=== PATIENT | female | born 1955 | race Caucasian/White ===

== ENCOUNTER 2017-09-09 10:01 | Outpatient (CLI) | payer MEDICARE ==
--- NOTE | 2017-09-10 16:03 | Mammography Report ---
DATE OF SERVICE: 09/09/2017 DIGITAL SCREENING MAMMOGRAM: 09/09/2017 CLINICAL INDICATION: A 61-year-old for screening. COMPARISON: 11/2015, 05/2013. TECHNIQUE: Routine CC and MLO projections were obtained of the breasts. FINDINGS: The breasts again demonstrate scattered fibroglandular densities bilaterally. Coarse and punctate, typically benign calcifications are present. Intramammary lymph node is stable. No suspicious masses, clustered microcalcifications, or regions of architectural distortion are identified. IMPRESSION: BENIGN FINDINGS. RECOMMENDATION: Routine annual screening unless otherwise clinically indicated. BIRADS CATEGORY 2 - BENIGN FINDINGS. STANDARD QUALIFYING STATEMENTS: 1. This examination was reviewed with the aid of Computer-Aided Detection (CAD). 2. A negative or benign imaging report should not delay biopsy if clinically suspicious findings are present. Consider surgical consultation if warranted. More than 5% of cancers are not identified by imaging. 3. Dense breasts may obscure an underlying neoplasm. TD: 09/10/2017 16:02
== END 2017-09-09 10:02 | disposition home or self-care (01) ==
LOC: DI 10:01
PROVIDERS: ATTEND Internal Medicine
DX: Z12.31 Encounter for screening mammogram for malignant neoplasm of breast (principal)
CPT/HCPCS: 77067

== ENCOUNTER 2017-09-09 10:02 | Outpatient (CLI) | payer MEDICARE ==
--- NOTE | 2017-09-11 13:02 | DEXA Report ---
DEXA SCAN: 09/09/2017 CLINICAL INDICATION: Postmenopausal. TECHNIQUE: Dual energy x-ray absorptiometry (DXA) was performed on a [employer] system. Regions measured are the AP spine, femoral neck, and, if needed, forearm. COMPARISON: None. In accordance with the International Society for Clinical Densitometry (ISCD) guidelines, data from previous exams may be reanalyzed using current recommendations and techniques. This is done to allow a more accurate basis for comparison with the current study. FINDINGS: The data for the lumbar spine is as follows: REGION BMD (g/cm/cm) T-SCORE Z-SCORE L1 1.242 0.9 1.9 L2 1.297 0.8 1.7 L3 1.385 1.5 2.5 L4 1.425 1.9 2.8 TOTAL 1.345 1.4 2.3 NOTE: All evaluable vertebrae are used for classification. The data for the hip is as follows: REGION BMD (g/cm/cm) T-SCORE Z-SCORE Neck 0.792 -1.8 -0.7 TOTAL 0.820 -1.5 -0.8 NOTE: The femoral neck or total proximal femur, whichever is lowest, is used for classification. IMPRESSION: THE WHO CLASSIFICATION BASED ON THE INTERNATIONAL REFERENCE STANDARD IS OSTEOPENIA. THE FRACTURE RISK IS INCREASED. RECOMMENDATION: Patients with diagnosis of osteoporosis or osteopenia should have regular bone mineral density assessment. For those eligible for Medicare, routine testing is allowed once every 2 years. Testing frequency can be increased for patients who have rapidly progressing disease or for those who are receiving medical therapy to restore bone mass. COMMENT: World Health Organization (WHO) definitions for osteoporosis and osteopenia: NORMAL BMD: T-score at 1.0 or higher, fracture risk is low. OSTEOPENIA BMD: T-score between 1.0 and -2.5, fracture risk is increased. OSTEOPOROSIS BMD: T-score at 2.5 or lower, fracture risk high. National Osteoporosis Foundation recommends: 1. Obtain adequate dietary calcium (at least 1200 mg per day) and vitamin D (400 -800 international units per day). 2. Participate, as appropriate, in regular weightbearing and muscle- strengthening exercise. 3. Avoid tobacco use and reduce alcohol and caffeine intake. 4. For more detailed information see the website at www.NOF.org. TD: 09/09/2017 12:30 MTDLola
== END 2017-09-09 10:03 | disposition home or self-care (01) ==
LOC: DI 10:02
PROVIDERS: ATTEND Internal Medicine
DX: Z13.820 Encounter for screening for osteoporosis (principal); M85.88 Other specified disorders of bone density and structure, other site
CPT/HCPCS: 77080

== ENCOUNTER 2017-10-08 12:24 | Outpatient (CLI) | payer MEDICARE ==
--- NOTE | 2017-10-08 18:15 | XRAY Report ---
BILATERAL HIPS AND PELVIS: 10/08/2017 CLINICAL INDICATION: Persistent pain. FINDINGS: Frontal view of the hips and pelvis and bilateral frogleg lateral views of the hips demonstrate moderate left and severe right hip osteoarthritis, with complete collapse of the right superior joint space. Surgical clips are noted in the left pelvis. There is no evidence of acute fracture or dislocation. IMPRESSION: RIGHT WORSE THAN THE LEFT HIP OSTEOARTHRITIS. TD: 10/08/2017 18:14
--- NOTE | 2017-10-08 18:16 | XRAY Report ---
THREE VIEW LEFT KNEE: 10/08/2017 CLINICAL INDICATION: Persistent pain. FINDINGS: AP, lateral, sunrise views of the left knee demonstrate mild osteoarthritis, with small osteophytes. There is no evidence of fracture or dislocation. No effusion is present. IMPRESSION: MILD LEFT KNEE OSTEOARTHRITIS. TD: 10/08/2017 18:15
== END 2017-10-08 12:25 | disposition home or self-care (01) ==
LOC: DI.S 12:24
PROVIDERS: ATTEND Internal Medicine
DX: M17.12 Unilateral primary osteoarthritis, left knee (principal); M16.0 Bilateral primary osteoarthritis of hip
CPT/HCPCS: 73521

== ENCOUNTER 2017-11-24 13:09 | Outpatient (CLI) | payer MEDICARE ==
[~2017-11-24 13:09] MED LIST: ALBUTEROL NEB 2.5 MG/3 ML INH ONE
== END 2017-11-24 13:10 | disposition home or self-care (01) ==
LOC: RT 13:09
PROVIDERS: ATTEND Internal Medicine
DX: J45.909 Unspecified asthma, uncomplicated (principal)
CPT/HCPCS: 94010

== ENCOUNTER 2019-01-28 10:58 | Outpatient (CLI) | payer MEDICARE ==
--- NOTE | 2019-01-31 08:36 | Mammography Report ---
Reason: ENCOUNTER FOR SCREENING MAMMOGRAM FOR MALIGNANT NE Procedure Date: 01/28/2019 Accession Number: [id number] / [id number] Procedure: [facility] - Screening Mammo w/Getachew CPT Code: FULL RESULT: EXAM: Screening Mammo w/Getachew DATE: 01/28/2019 2:46 PM CLINICAL HISTORY: Screening encounter. History of early menses. Family history of breast cancer in the mother at the age of 80. Family history of breast cancer in maternal grandmother at the age of 60. History of endometrial cancer. TECHNIQUE: (B) - Bilateral CC and MLO views were obtained. COMPARISON: 09/09/2017 through 05/24/2013. PARENCHYMAL PATTERN: (A) - The breast(s) demonstrate(s) scattered fibroglandular densities. FINDINGS: There are coarse typically benign calcifications. There are no suspicious masses, calcifications, or areas of distortion. IMPRESSION: Benign findings. BI-RADS category 2. RECOMMENDATION: (ANNUAL) - Recommend routine annual screening mammography. BI-RADS CATEGORY: (2) - Benign Findings. STANDARD QUALIFYING STATEMENTS: 1. This examination was not reviewed with the aid of Computer-Aided Detection (CAD). 2. A negative or benign imaging report should not preclude biopsy if clinically suspicious findings are present. 3. Dense breasts may obscure an underlying neoplasm. 4. This examination was reviewed with the aid of 3D breast imaging (tomosynthesis).
== END 2019-01-28 10:59 | disposition home or self-care (01) ==
LOC: DI 10:58
PROVIDERS: ATTEND Internal Medicine
DX: Z12.31 Encounter for screening mammogram for malignant neoplasm of breast (principal); Z80.3 Family history of malignant neoplasm of breast
CPT/HCPCS: 77063; 77067

== ENCOUNTER 2021-03-01 09:11 | Outpatient (CLI) | payer MEDICARE ==
[2021-03-01 10:03] VITALS: BP 132/84
--- NOTE | 2021-03-01 10:03 | SLEEP CARE CONSULTATION ---
Information from patient questionnaire entered by Paige Tipton. I have reviewed and concur with the information entered by Paige Tipton. This document represents the service I personally performed and the decisions made by me, Juany Ragsdale ARNP. History of Present Illness Service Date and Time: 03/01/2021 0911 Reason for Visit: New patient Chief Complaint: reports: Unrefreshed sleep, Snoring, Excessive daytime sleepiness. denies: Observed pauses in breathing, Frequent awakenings at night Date of Onset: 10 years plus Usual bedtime: 12 - 1 am Time it takes to fall asleep: 30 minutes to hours Snores at night: Yes Observed to quit breathing while asleep: No (sleeps alone) Sleeps alone due to snoring: No Number of times waking at night: 3 Reasons for waking at night: reports: Snoring, Pain, Bathroom. denies: Choking, Gasping for air Toss, Turn, or Twitch while sleeping: No (don't know, may toss a little) Recalls having dreams: Yes Usually gets out of bed at: 10 am Feels refreshed in the morning: No Morning headache: Yes (not always; 1-2 times a week, lasts until has coffee or takes analgesic) Sleepy or fatigued during the day: Yes Ever fallen asleep while driving: Yes (drowsy driving, no accidents) Takes day naps: No Dreams during day naps: No Prior sleep studies: No Additional HPI information: I had the pleasure of seeing ROVERTO GRECO today regarding the possibility of her having a sleep disorder. Her current complaints are snoring, unrefreshed sleep and excessive daytime sleepiness. She had full knee replacement surgery and it was seen that she decreases in her oxygen levels when she went to sleep. She has been told she snores. She states she gets clogged in her sinuses and this wakes her up at night. She has a cough. Her son recently told her that he has sleep apnea. - Parasomnia Symptoms Ever been unable to move upon waking from sleep: No Walks in sleep: No Talks in sleep: Yes Ever felt weak in the knees when startled or emotional: Yes Bothered by creepy, crawly, restless sensations in legs: Yes (happen throughout the day) Problems with memory or concentration: Yes (hard time concentrating on anything) Subjective Initial [place] Sleepiness Scale score: 11 (in 2020) Past Medical History Past Medical History: reports: Hypertension, Arthritis, Anemia, Anxiety, Asthma, Depression, Other (nerve damage, sciatica, bursitis of left hip) Social History The patient's occupation is a Retired. Patient is and lives in [place]. Have you smoked in the past 12 months: No Alcohol use: Yes Alcohol amount and frequency: 8 oz, a month Caffeine use: Yes Caffeine amount and frequency: 1 cup coffee daily Family History Family history of sleep disordered breathing: Yes Family Hx Sleep Apnea: Mother: Snoring, Father: Snoring, Other: Sleep apnea - Treated (son ) Allergies and Home Medications Drug allergies reviewed: Yes (penicillin) Home medication list reviewed: Yes Allergy and home medication list: Lisinopril Duloxetine Lamotrigine Omeprazole Atorvastatin Amitriptyline Review of Systems Weight gain over past 5 years: 30 Cardiovascular: reports: high blood pressure Respiratory: reports: shortness of breath, wheeze, chronic cough Gastrointestinal: reports: heartburn, diarrhea Urinary: reports: frequency Neurological: denies: headaches Psychiatric: reports: anxiety, depression Ear/Nose/Throat: reports: nasal congestion, sinus problems, dry mouth/throat, ho arseness, tonsillectomy, wisdom teeth removed Endocrine: reports: sluggishness, increased urination Musculoskeletal: reports: joint pain, neck pain, back pain, joint swelling, muscle pain or cramping Immunologic: reports: sneezing Physical Exam Blood Pressure: 132/84 Cuff size: long Heart Rate: 88 O2 Saturation: 99 Height: 5 ft 3 in Weight: 183 lb Body Mass Index: 32.4 BMI Classification: Obese Neck circumference: 14.25 (inches) Nostrils: patent to airflow Mouth and throat: narrow oropharynx Soft palate: long Hard palate: normal Uvula: normal Uvula visualization: 50% Mallampati Class II Tongue: enlarged in size with teeth martini on lateral edges Tonsils: absent bilaterally Neck: normal w/o lymphadenopathy or thyromegaly Heart: regular rate and rhythm Lungs: clear bilaterally Impression and Plan 1. Suspected Obstructive Sleep Apnea-Hypopnea Syndrome, as suggested by a history of loud and irregular snoring, morning headache, unrefreshed sleep, cognitive impairment, and excessive daytime sleepiness. Narrow oropharynx and obesity are common predisposing factors for obstructive sleep apnea-hypopnea syndrome. I recommend proceeding to polysomnography to confirm the diagnosis and to assess severity. If the patient has significant sleep disordered breathing, a manual CPAP titration study will also be performed to find the optimal treatment pressure. I informed the patient of what the sleep studies involve and after some discussion, obtained agreement to proceed. The pathophysiology of obstructive sleep apnea-hypopnea syndrome was discussed with the patient and health risks of cardiovascular and cerebrovascular disease if not treated. Risks of drowsy driving discussed in detail and patient advised to avoid long distance driving and to basting puller at the first sign of drowsiness. Patient agreed to plan. * Schedule polysomnography +- manual CPAP titration study and return in 1-2 weeks after the study to discuss result and initiate therapy. * Avoid long distance driving or driving when feeling sleepy. * Avoid alcohol, sedative and muscle relaxant around bedtime. * Attempt to lose weight. * Review instructions provided by trained office staff on how to prepare for the sleep study. * Return for follow-up after sleep study completed. Counseling Topics: Weight loss health impact Visit Type: In Office Time Spent with Patient (minutes): 30 Provider Statement: I spent 100% of the Face to Face Visit with the patient with greater than 50% spent counseling the patient and coordination of care.
== END 2021-03-01 09:12 | disposition home or self-care (01) ==
LOC: SC 09:11
PROVIDERS: ATTEND Nurse Practitioner Family
DX: G47.10 Hypersomnia, unspecified (principal); R51.9 Headache, unspecified; R41.89 Other symptoms and signs involving cognitive functions and awareness; G47.8 Other sleep disorders; R06.83 Snoring; E66.9 Obesity, unspecified; Z68.32 Body mass index [BMI] 32.0-32.9, adult
CPT/HCPCS: 99203; G0463; 99212

== ENCOUNTER 2021-12-12 10:07 | Outpatient (CLI) | payer MEDICARE ==
[2021-12-12 10:38] LABS: BASOPHILS # (AUTO) 0.1 10^3/uL (0.0-0.1); BASOPHILS % (AUTO) 0.8 %; EOSINOPHILS # (AUTO) 0.1 10^3/uL (0.0-0.7); EOSINOPHILS % (AUTO) 1.5 %; HCT - HEMATOCRIT 41.8 % (37.0-47.0); LYMPHOCYTES # (AUTO) 1.3 10^3/uL (1.5-3.5); LYMPHOCYTES % (AUTO) 14.2 %; MEAN CORPUSCULAR HEMOGLOBIN 19.8 pg (27.0-31.0); MEAN CORPUSCULAR HGB CONC 28.7 g/dL (32.0-36.0); MEAN CORPUSCULAR VOLUME 68.9 fL (81.0-99.0); MEAN PLATELET VOLUME 9.4 fL (7.9-10.8); MONOCYTES # (AUTO) 0.5 10^3/uL (0.0-1.0); MONOCYTES % (AUTO) 5.2 %; NEUTROPHILS # (AUTO) 7.2 10^3/uL (1.5-6.6); PLT - PLATELET COUNT 409 10^3/uL (130-450); RED BLOOD COUNT 6.07 10^6/uL (4.20-5.40); RED CELL DISTRIBUTION WIDTH 21.2 % (12.0-15.0); WHITE BLOOD COUNT 9.3 x10^3/uL (4.8-10.8)
[2021-12-12 10:41] LABS: SLIDE REVIEW? Indicated
[2021-12-12 10:59] LABS: ALBUMIN 4.4 g/dL (3.2-5.5); ALBUMIN/GLOBULIN RATIO 1.3 (1.0-2.2); ALKALINE PHOSPHATASE 102 IU/L (42-121); ALT ALANINE AMINOTRANSFERASE 16 IU/L (10-60); AST ASPARTATE AMINOTRANSFERASE 16 IU/L (10-42); BILIRUBIN,TOTAL 0.6 mg/dL (0.2-1.0); BUN - BLOOD UREA NITROGEN 23 mg/dL (6-20); CALCIUM 10.1 mg/dL (8.5-10.3); CARBON DIOXIDE - CO2 25 mmol/L (21-32); CHLORIDE 103 mmol/L (101-111); CHOLESTEROL 191 mg/dL; CREATININE 0.7 mg/dL (0.4-1.0); GFR - MDRD 84 (>89); GLUCOSE 128 mg/dL (70-100); HDL CHOLESTEROL 38 mg/dL; LDL CHOLESTEROL,CALCULATED 101 mg/dL; LDL/HDL RATIO 2.7 (<4.4); SODIUM 141 mmol/L (135-145); TOTAL PROTEIN 7.8 g/dL (6.7-8.2); TRIGLYCERIDES 261 mg/dL; VLDL CHOLESTEROL 52 mg/dL
[2021-12-12 11:04] LABS: PLATELET ESTIMATE, MANUAL NORMAL (130-450,000) (NORMAL); PLATELET MORPHOLOGY NORMAL APPEARANCE (NORMAL)
== END 2021-12-12 10:08 | disposition home or self-care (01) ==
LOC: LAB 10:07
PROVIDERS: ATTEND Internal Medicine
DX: E83.52 Hypercalcemia (principal); I10 Essential (primary) hypertension; E78.5 Hyperlipidemia, unspecified
CPT/HCPCS: 36415; 80053; 80061; 81001; 81003; 83721; 83970; 85025; 87086

== ENCOUNTER 2022-02-13 10:48 | Outpatient (CLI) | payer MEDICARE ==
--- NOTE | 2022-02-13 10:41 | SLEEP CARE CONSULTATION ---
Information from patient questionnaire entered by Venancio Hill MA. I have reviewed and concur with the information entered by Venancio Hill MA. This document represents the service I personally performed and the decisions made by , Juany Ragsdale ARNP. History of Present Illness Service Date and Time: 02/13/2022 1020 Reason for follow up: annual Prior sleep studies: No HPI additional information: I had the pleasure of seeing ROVERTO GRECO today via video telehealth visit regarding the possibility of her having a sleep disorder. Patient was last seen in 02/2021 in this office and a sleep study was ordered but not completed. Her current complaints are get only 3 hours of sleep a night in a row, tired all the time and unrefreshed sleep. The patient tells me that she normally goes to bed around 0100 AM, and it takes her approximately 15 minutes to couple hours to fall asleep. She has been told that she snores loudly and irregularly at night. She has not been observed to stop breathing in her sleep. She has not had any bed partners in 20 years. She can recall waking up on the average of 3 times during the night. Most of the time she wakes up because of unknown reasons or the bathroom. She has not awakened for her own snoring, choking, and having to gasp for air. She has woke herself up talking. There is a lot of tossing and turning in her sleep. Generally she can recall having dreams. She usually wakes up at 0900 and does not feel refreshed. She usually does have a morning headache that will last 2-3 hours. She has a history of cataracts and allergies. During the day she complains of feeling sleepy and fatigued. She has never fallen asleep while driving nor has any accident due to sleepiness. She usually does not take naps during the day. If she naps, upon falling asleep during the day she denies having vivid dreams. She denies having impaired concentration during the day. There is no somniloquy (sleep talking) but no somnambulism (sleep walking). She has never experienced sleep paralysis, cataplexy, or symptoms of restless leg syndrome. Sleep Study - Results Prior sleep studies: No Subjective Initial [place] Sleepiness Scale score: 11 (in 2020) Current [place] Sleepiness Scale score: 5 Allergies and Home Medications Home medication list reviewed: Yes (no changes) Review of Systems Review of systems same as previous: Yes (no changes) Physical Exam Vital signs obtained and entered by: CARMELITA MCCALL Height: 5 ft 3 in Weight: 185 lb (per pt) Body Mass Index: 32.8 BMI Classification: Obese Impression and Plan 1. Suspected Obstructive Sleep Apnea-Hypopnea Syndrome, as suggested by a history of loud and irregular snoring, observed cessation of breath while asleep, morning headache, unrefreshed sleep, and excessive daytime sleepiness. She has a past medical history of high blood pressure, anxiety and depression. I recommend proceeding to polysomnography to confirm the diagnosis and to assess severity. If the patient has significant sleep disordered breathing, a manual CPAP titration study will also be performed to find the optimal treatment pressure. I informed the patient of what the sleep studies involve and after some discussion, obtained agreement to proceed. The pathophysiology of obstructive sleep apnea-hypopnea syndrome was discussed with the patient and health risks of cardiovascular and cerebrovascular disease if not treated. Risks of drowsy driving discussed in detail and patient advised to avoid long distance driving and to anchor tack puller at the first sign of drowsiness. Patient agreed to plan. * Schedule polysomnography * Avoid alcohol, sedative and muscle relaxant around bedtime. * Attempt to lose weight. * Review instructions provided by trained office staff on how to prepare for the sleep study. * Return for follow-up after sleep study completed. Counseling Topics: Weight loss health impact Visit Type: Telehealth Video ([phone]) Video Type: BCKSTGR Patient Location: Home Location of Provider: Office Patient agrees and consents to this telehealth visit type: Yes Patient agrees to have their insurance billed: Yes Time Spent with Patient (minutes): 20 Provider Statement: I spent 100% of the Telehealth Video Call with the patient with greater than 50% spent counseling the patient and coordination of care.
== END 2022-02-13 10:49 | disposition home or self-care (01) ==
LOC: SC 10:48
PROVIDERS: ATTEND Nurse Practitioner Family
DX: G47.10 Hypersomnia, unspecified (principal); R53.83 Other fatigue; R51.9 Headache, unspecified; R06.83 Snoring; G47.8 Other sleep disorders; I10 Essential (primary) hypertension; F32.A Depression, unspecified; E66.9 Obesity, unspecified; Z68.32 Body mass index [BMI] 32.0-32.9, adult

== ENCOUNTER 2022-03-03 11:31 | Outpatient (CLI) | payer MEDICARE ==
--- NOTE | 2022-03-04 08:47 | Mammography Report ---
BILATERAL DIGITAL SCREENING MAMMOGRAM 3D/2D: 03/03/2022 CLINICAL: Routine screening. Comparison is made to exams dated: 01/28/2019 mammogram, 09/09/2017 mammogram, 11/26/2015 mammogram, an d 05/24/2013 mammogram - [facility]. There are scattered fibroglandular elements i n both breasts. No significant masses, calcifications, or other findings are seen in either breast. There has been no significant interval change. IMPRESSION: NEGATIVE There is no mammographic evidence of malignancy. A 1 year screening mammogram is recommended. Based on the Tyrer Cuzick model (a risk assessment model) the patients lifetime risk is 7.1% and her 10 year risk is 3.3%. According to the ACR, ACS, and NCCN guidelines, an annual breast MRI exam latricia g with mammogram is recommended if the patients lifetime risk is 20% or greater. This exam was interpreted at Station ID: [id number]. NOTE: For mammograms, a report in lay terms will be sent to the patient. Approximately 15% of breast malignancies will not be visualized mammographically. In the management of a palpable breast mass, a negative mammogram must not discourage biopsy of a clinically suspicious lesion. Electronically Signed By: J Carlos ruiz/gem:03/03/2022 13:05:43 ACR BI-RADS Category 1: Negative 3341F PARENCHYMAL PATTERN: (A) - The breast(s) demonstrate(s) scattered fibroglandular densities. BI-RADS CATEGORY: (1) - 1 RECOMMENDATION: (ANNUAL) - Recommend routine annual screening mammography. [id number] 1 year screening LATERALITY: (B)
== END 2022-03-03 11:32 | disposition home or self-care (01) ==
LOC: DI 11:31
PROVIDERS: ATTEND Internal Medicine
DX: Z12.31 Encounter for screening mammogram for malignant neoplasm of breast (principal)

== ENCOUNTER 2022-08-29 12:48 | Outpatient (CLI) | payer MEDICARE | END 2022-08-29 12:49 | disposition critical access hospital (66) | LOC: EMS 12:48 | DX: M25.551 Pain in right hip (principal); Z96.641 Presence of right artificial hip joint | CPT/HCPCS: A0425; A0427 ==

== ENCOUNTER 2022-08-29 13:03 | Emergency (ER) | payer MEDICARE ==
[2022-08-29] MEDS ORDERED: HYDROmorphone 1 MG/ML CARPUJECT IVP STA ×2 (13:11→14:08)
[2022-08-29] MEDS ORDERED: SODIUM CHLORIDE 0.9% 1,000 ML IV STA (13:13)
--- NOTE | 2022-08-29 13:17 | ED Physician Documentation ---
History of Present Illness - Stated complaint Stated Complaint: TOTAL HIP REPLACEMENT - Chief complaint Chief Complaint: Ext Problem - History obtained from History obtained from: Patient - History of Present Illness Pain level max: 10 Pain level now: 10 - Additonal information Additional information: 66-year-old female status post total hip replacements in July [address] [facility] Dr. Dueñas. She states she was getting out of her car today, twisted and felt a pop in her hip. Unable to walk since that time. W orse with movement, nothing makes it better. 50 mcg of fentanyl given by EMS on route. Review of Systems Musculoskeletal: denies: Neck pain, Back pain Neurologic: denies: Focal weakness, Numbness, Headache, Head injury PD PAST MEDICAL HISTORY - Past Medical History Past Medical History: Yes Cardiovascular: Hypertension, Coronary artery disease GI: GERD Psych: Depression - Past Surgical History Past Surgical History: Yes Ortho: Other (Right total hip replacement) - Present Medications Home Medications: Ambulatory Orders Medication Instructions Recorded Confirmed Duloxetine HCl [Cymbalta] 60 mg PO DAILY 02/15/14 08/29/22 Omeprazole [PriLOSEC] 20 mg PO DAILY 02/15/14 08/29/22 Amlodipine Besylate [Norvasc] 5 mg PO DAILY 08/29/22 08/29/22 Aspirin [[place]ory Aspirin] 81 mg PO DAILY 08/29/22 08/29/22 Atorvastatin Calcium 40 mg PO DAILY 08/29/22 08/29/22 Clopidogrel [Plavix] 75 mg PO DAILY 08/29/22 08/29/22 Isosorbide Mononitrate ER [Imdur] 30 mg PO DAILY 08/29/22 08/29/22 Metoprolol Succinate [Toprol Xl] 25 mg PO DAILY 08/29/22 08/29/22 Nitroglycerin [Nitrostat] 0.4 mg SL [id number] 08/29/22 08/29/22 Pravastatin [Pravachol] 80 mg PO DAILY 08/29/22 08/29/22 lamoTRIgine [LaMICtal] 25 mg PO BID 08/29/22 08/29/22 - Allergies Allergies/Adverse Reactions: Allergies Allergy/AdvReac Type Severity Reaction Status Date / Time Penicillins Allergy Hives Verified 08/29/22 13:16 - Living Situation Living Arrangement: reports: At home - Social History Does the pt smoke?: No Does the pt drink ETOH?: Yes Does the pt have substance abuse?: No - Family History Family history: reports: Non contributory PD ED PE NORMAL - Vitals Vital signs reviewed: Yes - General General: Alert and oriented X 3, No acute distress, Well developed/nourished - HEENT HEENT: Moist mucous membranes - Neck Neck: Supple, no meningeal sign - Cardiac Cardiac: RRR, Strong equal pulses - Respiratory Respiratory: No respiratory distress, Clear bilaterally - Abdomen Abdomen: Soft, Non tender, Non distended - Back Back: No CVA TTP, No spinal TTP - Derm Derm: Warm and dry - Extremities Extremities: Other (The right leg is slightly shortened and internally rotated. Tender to palpation over the right hip. Neurovascular intact) - Neuro Neuro: Alert and oriented X 3 - Psych Psych: Normal mood, Normal affect Results - Vitals Vitals: Vital Signs - 24 hr 08/29/22 08/29/22 08/29/22 13:12 14:18 14:33 Temperature 36.4 C L Heart Rate 89 91 83 Respiratory 24 13 23 Rate Blood Pressure 116/97 H 185/112 H 166/133 H O2 Saturation 100 99 97 Oxygen O2 Source Room air - Rads (name of study) R hip xray Radiology: Final report received, See rad report R hip post reduction Radiology: Final report received, See rad report Procedures - Reduction Body part reduced: Right, Hip, prosthetic Fracture or dislocation: Dislocation Anesthesia: Other (propofol) Hip reduction technique: Allis - flex/pull/rotate, Fulcrum, Whistler - prone flex Reduction aftercare: NV intact, Xray confirms reduction, Patient tolerated well - Procedural sedation Sedation prep: Informed consent, Time out completed, Last meal (12 hours ago), ASA 2 - mild disease Sedation Medications: propofol Mallampati classification: II Patient status during sedation: Responds to tactile, Vitals remained stable, Maintained airway, Recovered uneventfully Sedation recovery: Recovered uneventfully Time in sedation (Minutes): 35 PD Medical Decision Making - ED course Complexity details: reviewed results, re-evaluated patient, considered di fferential, d/w patient ED course: Patient is a 66-year-old female with a right hip dislocation. She was given Dilaudid and propofol. The hip was unable to be reduced despite several attempts by me and Dr. Pierce, physician in the emergency department. I spoke with orthopedics, Dr. Dhaliwal and who came and evaluated the patient. Anesthesia came to the bedside as well, anesthesia sedated the patient, please see their note, several more attempts were made to reduce the hip, finally the hip was able to be reduced. Placed in a knee immobilizer to help prevent recu rrent dislocation. Patient declines pain medication here or for home. Patient will follow up with her orthopedist for further care. Patient counseled regarding signs and symptoms for which I believe and urgent re-evaluation would be necessary. Patient with good understanding of and agreement to plan and is comfortable going home at this time This document was made in part using voice recognition software. While efforts are made to proofread this document, sound alike and grammatical errors may occur. Departure - Departure Disposition: 01 Home, Self Care Clinical Impression: Hip dislocation, right Qualifiers: Encounter type: initial encounter Qualified Code(s): S73.004A - Unspecified dislocation of right hip, initial encounter Condition: Good Instructions: ED Hip Replace Dislocation Reduc Follow-Up: Kelsey Dueñas MD [Physician No Access] - Within 1 week Comments: Please stay in the knee immobilizer for the next several days. Please call Dr. Dueñas's office tomorrow for follow-up appointment. Please return if you worsen. You may want to use a walker and/or a cane to help you ambulate. Please try to not excessively bend or flex of the hip for the next several days.
[2022-08-29] MEDS ORDERED: PROPOFOL 200 MG/20 ML VIAL IVP STA (13:19)
--- NOTE | 2022-08-29 14:15 | XRAY Report ---
PROCEDURE: Pelvis 1 View INDICATIONS: R hip pain, h/o THR TECHNIQUE: 2 view(s) of the pelvis acquired. COMPARISON: Prior pelvis and bilateral hip plain films (before right hip arthroplasty) dictated 2017 reviewed. FINDINGS: Bones: No fractures but there is a right arthroplasty hip dislocation with the arthroplasty femoral head component shifted cephalad out of the acetabulum and positioned superiorly above the acetabular prosthesis margin. No suspicious bony lesions. Soft tissues: Visualized bowel gas pattern is normal. No suspicious soft tissue calcifications. IMPRESSION: Total right hip arthroplasty dislocation cephalad, with the femoral head component posit ioned approximately 1 cm above the upper margin of the arthroplasty acetabular component. The [place] bone fracture is not associated. Reviewed by: Aristides Bateman MD on 08/29/2022 2:14 PM PST Approved by: Aristides Bateman MD on 08/29/2022 2:14 PM PST Station ID: [id number]
[2022-08-29] MEDS ORDERED: SUCCINYLCHOLINE 200 MG/10 ML VIAL ONE (15:13)
[2022-08-29] MEDS ORDERED: PROPOFOL 200 MG/20 ML VIAL IVP ONE ×3 (15:15→15:44)
--- NOTE | 2022-08-29 16:08 | ANESTHESIA ---
Pre-Anesthesia VS, & Labs - Diagnosis Dislocated right hip - Procedure closed reduction right hip Vital Signs: Temp Pulse Resp BP Pulse Ox O2 Flow Rate 36.4 C L 91 13 185/112 H 99 08/29/22 13:12 08/29/22 14:45 08/29/22 14:45 08/29/22 14:45 08/29/22 14:45 Height: 5 ft 3 in Weight (kg): 79.379 kg Body Mass Index: 30.9 BMI Classification: Obese - NPO >8 hours - Is Patient ?: No Home Medications and Allergies Home Medications: Ambulatory Orders Amlodipine Besylate [Norvasc] 5 mg PO DAILY 08/29/22 Aspirin [Cidra Aspirin] 81 mg PO DAILY 08/29/22 Atorvastatin Calcium 40 mg PO DAILY 08/29/22 Clopidogrel [Plavix] 75 mg PO DAILY 08/29/22 Isosorbide Mononitrate ER [Imdur] 30 mg PO DAILY 08/29/22 Metoprolol Succinate [Toprol Xl] 25 mg PO DAILY 08/29/22 Nitroglycerin [Nitrostat] 0.4 mg SL [id number] 08/29/22 Pravastatin [Pravachol] 80 mg PO DAILY 08/29/22 lamoTRIgine [LaMICtal] 25 mg PO BID 08/29/22 Active Medications Sodium Chloride (Normal Saline 0.9%) 1,000 mls @ 150 mls/hr IV .Q6H40M STA Stop: 08/29/22 19:52 Last Infusion: 08/29/22 14:41 Dose: 150 mls/hr Duloxetine HCl [Cymbalta] 60 mg PO DAILY 02/15/14 Omeprazole [PriLOSEC] 20 mg PO DAILY 02/15/14 Amlodipine Besylate [Norvasc] 5 mg PO DAILY 08/29/22 Aspirin [Cidra Aspirin] 81 mg PO DAILY 08/29/22 Atorvastatin Calcium 40 mg PO DAILY 08/29/22 Clopidogrel [Plavix] 75 mg PO DAILY 08/29/22 Isosorbide Mononitrate ER [Imdur] 30 mg PO DAILY 08/29/22 Metoprolol Succinate [Toprol Xl] 25 mg PO DAILY 08/29/22 Nitroglycerin [Nitrostat] 0.4 mg SL [id number] 08/29/22 Pravastatin [Pravachol] 80 mg PO DAILY 08/29/22 lamoTRIgine [LaMICtal] 25 mg PO BID 08/29/22 Allergies/Adverse Reactions: Allergies Allergy/AdvReac Type Severity Reaction Status Date / Time Penicillins Allergy Hives Verified 08/29/22 13:16 Anes History & Medical History - Anesthetic History Anesthesia Complications: reports: No previous complications - Medical History Cardiovascular: reports: Hypertension, High cholesterol Pulmonary: reports: Sleep apnea Gastrointestinal: reports: GERD Urinary: reports: None Neuro: reports: None Musculoskeletal: reports: Osteoarthritis Endocrine/Autoimmune: reports: None Blood Disorders: reports: None Skin: reports: None Smoking Status: Never smoker Psychosocial: reports: Cannabis History of Cancer?: No - Surgical History Orthopedic: reports: Hip replacement, Knee replacement, Arthroscopic surgery, Other Exam General: Alert, Oriented x3, Cooperative, No acute distress Dental: WNL Mouth Openin Fingerbreadth Neck Mobility: Normal Mallampati classification: II Thyromental Distance: 4-6 cm Mental/Cognitive Status: Alert/Oriented X3, Normal for patient Plan Anesthesia Type: General (propofol with succinylcholine for muscle relaxation. Will be performed in ED) Consent for Procedure(s) Verified and Reviewed: Yes Code Status: Attempt Resuscitation ASA classification: 2-Mild systemic disease Is this case an emergency?: Yes
--- NOTE | 2022-08-29 16:20 | XRAY Report ---
PROCEDURE: Pelvis 1 View INDICATIONS: post reduction TECHNIQUE: 1 view(s) of the right pelvis/hip acquired. COMPARISON: None. FINDINGS: Bones: There has been satisfactory reduction of a previously dislocated total right hip arthroplasty. No fractures or dislocations. No suspicious bony lesions. Soft tissues: Visualized bowel gas pattern is normal. No suspicious soft tissue calcifications. IMPRESSION: Satisfactory reduction of dislocated hip prosthesis. Reviewed by: Walker Navarrete MD on 08/29/2022 4:18 PM PST Approved by: Walker Navarrete MD on 08/29/2022 4:18 PM PST Station ID: [id number]
[2022-08-29 17:35] VITALS: BP 177/95
--- NOTE | 2022-08-29 22:48 | ANESTHESIA POST OP EVALUATION ---
Anesthesia Post Eval - Post Anesthesia Eval Vitals: Last Vital Signs Temp 36.4 C L 08/29/22 13:12 Pulse 93 08/29/22 17:35 Resp 18 08/29/22 17:35 BP 177/95 H 08/29/22 17:35 Pulse Ox 96 08/29/22 17:35 O2 Flow Rate CV Function Including HR & BP: Stable Pain Control: Satisfactory Nausea & Vomiting: Negative Mental Status: Baseline Respiratory Status: Airway Patent Hydration Status: Satisfactory Anesthesia Complications: None
--- NOTE | 2022-09-03 10:44 | CONSULTATION NOTE ---
Referring Provider Name of Referring Provider:: Dr. Aponte History of Present Illness - History Obtained From History obtained from: patient Exam Limitations: sedation from medication - History of Present Illness HPI Comment/Other: This is a 66-year-old woman with a right total hip arthroplasty performed over a year ago at [facility]. She is not aware of any complications and was doing well until today when she was turning, felt a pop, fell and had pain to her right hip and groin. She had thigh pain. She had marked pain. I was called to see her after she had at least 1 or 2 attempts by the ER doctor to reduce her dislocated right hip. She was sedated when I initially saw her. History - Past Medical History Cardiovascular: reports: Hypertension, Coronary artery disease Respiratory: reports: Sleep apnea Neuro: reports: None Endocrine/Autoimmune: reports: None GI: reports: GERD : reports: None Psych: reports: Depression Musculoskeletal: reports: Osteoarthritis Derm: reports: None - Past Surgical History Ortho: reports: Other (Right total hip replacement) - Family & Social History Living arrangement: At home Meds/Allgy - Home Medications Home Medications: Ambulatory Orders Medication Instructions Recorded Confirmed Duloxetine HCl [Cymbalta] 60 mg PO DAILY 02/15/14 08/29/22 Omeprazole [PriLOSEC] 20 mg PO DAILY 02/15/14 08/29/22 Amlodipine Besylate [Norvasc] 5 mg PO DAILY 08/29/22 08/29/22 Aspirin [Landrum Aspirin] 81 mg PO DAILY 08/29/22 08/29/22 Atorvastatin Calcium 40 mg PO DAILY 08/29/22 08/29/22 Clopidogrel [Plavix] 75 mg PO DAILY 08/29/22 08/29/22 Isosorbide Mononitrate ER [Imdur] 30 mg PO DAILY 08/29/22 08/29/22 Metoprolol Succinate [Toprol Xl] 25 mg PO DAILY 08/29/22 08/29/22 Nitroglycerin [Nitrostat] 0.4 mg SL [id number] 08/29/22 08/29/22 Pravastatin [Pravachol] 80 mg PO DAILY 08/29/22 08/29/22 lamoTRIgine [LaMICtal] 25 mg PO BID 08/29/22 08/29/22 - Allergies Allergies/Adverse Reactions: Allergies Allergy/AdvReac Type Severity Reaction Status Date / Time Penicillins Allergy Hives Verified 08/29/22 13:16 Exam - Physical Exam Comments/Other: Shortening and internal rotation deformity right leg. Neurovascular intact right leg. Limited movement right hip because of marked pain. Conclusion and Plan - Diagnostic Imaging Results Diagnostic Imaging Results: negative: Read independently (Dislocation right total hip replacement, no sign of fracture) - Diagnosis Diagnosis: Dislocated right total hip replacement - Plan Plan: Patient is in agreement to close reduction. The nurse acupressurist was called to provide sedation and muscle relaxation. A timeout procedure had been performed and the procedure was performed with Dr. Connor, physician rn first assistant Kemi Hines and myself. Countertraction was applied to the pelvis with longitudinal traction and adduction to the right leg. With strong traction in the abducted position, the hip was reduced. I was providing the countertraction while Dr. Connor provided the traction to the right leg. There was an audible sound of reduction, correction of deformity of right leg, confirmation of reduction by portable x- ray, neurovascular intact. Patient tolerated procedure well and will be discharged to home with knee immobilizer, walker and instructions to follow-up with her primary orthopedist at [facility] next week
== END 2022-08-29 17:35 | disposition home or self-care (01) ==
LOC: EDUNIT# → ED 13:03
DX: S73.004A Unspecified dislocation of right hip, initial encounter (principal); X58.XXXA Exposure to other specified factors, initial encounter; Z96.643 Presence of artificial hip joint, bilateral; I10 Essential (primary) hypertension; I25.10 Atherosclerotic heart disease of native coronary artery without angina pectoris
CPT/HCPCS: 27265; 72170; 96374; 96376; 99152; 99153; 99284; J0330; J1170

== ENCOUNTER 2023-01-08 08:45 | Day surgery (SDC) | payer MEDICARE ==
[2023-01-08] MEDS ORDERED: LACTATED RINGERS 1,000 ML IV ONE (08:47)
[2023-01-08] MEDS ORDERED: LIDOCAINE-MPF 2% 5 ML VIAL ONE (09:16)
[2023-01-08] MEDS ORDERED: PROPOFOL 500 MG/50 ML 500 MG/50 ML VIAL ONE (09:16)
[2023-01-08] MEDS ORDERED: MIDAZOLAM 2 MG/2 ML VIAL ONE (09:17)
--- NOTE | 2023-01-08 09:17 | ANESTHESIA ---
Pre-Anesthesia VS, & Labs - Diagnosis anemia - Procedure EGD and colonoscopy Vital Signs: Temp Pulse Resp BP Pulse Ox O2 Flow Rate 36 C L 115 H 16 166/95 H 100 01/08/23 08:53 01/08/23 08:53 01/08/23 08:53 01/08/23 08:53 01/08/23 08:53 Height: 5 ft 3 in Weight (kg): 74 kg Body Mass Index: 28.9 BMI Classification: Overweight - NPO >8 hours - Is Patient ?: No Home Medications and Allergies Home Medications: Ambulatory Orders Ascorbic Acid [Vitamin C] 500 mg PO DAILY 01/07/23 Lisinopril/Hydrochlorothiazide [Zestoretic 10-12.5 mg Tablet] 1 each PO DAILY 01/07/23 Cyclosporine [Restasis Multidose] 5.5 drops RIGHTEYE 1-2XD 01/08/23 Duloxetine HCl [Cymbalta] 60 mg PO DAILY 02/15/14 Omeprazole [PriLOSEC] 20 mg PO DAILY 02/15/14 Atorvastatin Calcium 40 mg PO DAILY 08/29/22 lamoTRIgine [LaMICtal] 25 mg PO BID 08/29/22 Ascorbic Acid [Vitamin C] 500 mg PO DAILY 01/07/23 Lisinopril/Hydrochlorothiazide [Zestoretic 10-12.5 mg Tablet] 1 each PO DAILY 01/07/23 Cyclosporine [Restasis Multidose] 5.5 drops RIGHTEYE 1-2XD 01/08/23 Allergies/Adverse Reactions: Allergies Allergy/AdvReac Type Severity Reaction Status Date / Time Penicillins Allergy Hives Verified 08/29/22 13:16 Anes History & Medical History - Anesthetic History Anesthesia Complications: reports: No previous complications - Medical History Cardiovascular: reports: Hypertension Pulmonary: reports: Sleep apnea Gastrointestinal: reports: GERD Urinary: reports: None Neuro: reports: None Musculoskeletal: reports: Osteoarthritis, Chronic back pain Endocrine/Autoimmune: reports: None Blood Disorders: reports: None Skin: reports: None Smoking Status: Never smoker Psychosocial: reports: No issues indicated History of Cancer?: No - Surgical History Eyes Ears Nose Throat (EENT): reports: Tonsil/Adenoidectomy Gynecologic: reports: section, Hysterectomy, Oophrectomy Orthopedic: reports: Other Exam General: Alert, Oriented x3, Cooperative, No acute distress Dental: WNL Mouth Openin Fingerbreadth Neck Mobility: Normal Mallampati classification: II Thyromental Distance: 4-6 cm Mental/Cognitive Status: Alert/Oriented X3, Normal for patient Plan Anesthesia Type: General, Total IV Consent for Procedure(s) Verified and Reviewed: Yes Code Status: Attempt Resuscitation ASA classification: 2-Mild systemic disease Is this case an emergency?: No
[2023-01-08] MEDS ORDERED: fentaNYL 100 MCG/2 ML VIAL ONE (10:16)
[2023-01-08] MEDS ORDERED: PROPOFOL 200 MG/20 ML VIAL IVP ONE (10:19)
[2023-01-08] MEDS ORDERED: LABETALOL 5 MG/1 ML 20 ML MDV ONE (10:23)
[2023-01-08] MEDS ORDERED: LACTATED RINGERS 300 ML IV ONE (10:43)
[2023-01-08 11:20] VITALS: BP 134/76
--- NOTE | 2023-01-08 14:04 | ANESTHESIA POST OP EVALUATION ---
Anesthesia Post Eval - Post Anesthesia Eval Vitals: Last Vital Signs Temp 30 C L 01/08/23 11:18 Pulse 63 01/08/23 11:18 Resp 16 01/08/23 11:18 BP 134/76 H 01/08/23 11:18 Pulse Ox 98 01/08/23 11:18 O2 Flow Rate CV Function Including HR & BP: Stable Pain Control: Satisfactory Nausea & Vomiting: Negative Mental Status: Baseline Respiratory Status: Airway Patent Hydration Status: Satisfactory Anesthesia Complications: None
== END 2023-01-08 08:46 | disposition home or self-care (01) ==
LOC: SDS 08:45
PROVIDERS: ATTEND Surgery
PROC: 0DBP8ZZ Excision of Rectum, Via Natural or Artificial Opening Endoscopic (ICD-10-PCS; 2023-01-08)
PROC: 0DB98ZX Excision of Duodenum, Via Natural or Artificial Opening Endoscopic, Diagnostic (ICD-10-PCS; principal; 2023-01-08 09:45)
PROC: 0DB68ZX Excision of Stomach, Via Natural or Artificial Opening Endoscopic, Diagnostic (ICD-10-PCS; 2023-01-08 09:45)
DX: D50.9 Iron deficiency anemia, unspecified (principal); D12.8 Benign neoplasm of rectum; K31.7 Polyp of stomach and duodenum; K64.4 Residual hemorrhoidal skin tags; G47.30 Sleep apnea, unspecified
CPT/HCPCS: 43239; 45380; J7120

== ENCOUNTER 2023-03-17 15:20 | Outpatient (CLI) | payer MEDICARE ==
--- NOTE | 2023-03-18 16:48 | MRI Report ---
PROCEDURE: CERVICAL SPINE WO INDICATIONS: CERVICAL SPINAL STENOSIS TECHNIQUE: Noncontrast sagittal T1 spin echo and T2 fast spin echo, sagittal STIR, foraminal oblique sagittal T2 fast spin echo, and axial gradient echo or T2 fast spin echo through the cervical spine. COMPARISON: MRI dated 06/08/2014 FINDINGS: Image quality: Degraded by motion artifact. Alignment and Curvature: There is loss of normal cervical lordosis. There is a 3 mm of anterolisthes is of C3 on C4. 2 mm of anterolisthesis of C4 on C5. 2 mm of retrolisthesis of C6 on C7. Bone Marrow: Marrow demonstrates normal overall signal. Mild reactive signal throughout the endplat es of the cervical and upper thoracic spine. Spinal Cord: Visualized spinal cord has normal size and signal. No cerebellar tonsillar herniation. Paraspinous Soft Tissues: No paravertebral masses. Prevertebral soft tissues are normal in thicknes s. C2-C3: Mild disc desiccation and diffuse disc bulge. Mild facet and uncovertebral hypertrophy bilate rally. Mild canal stenosis. Severe right and mild left foraminal stenosis. Right C3 nerve root compre ssion, new since the prior examination. C3-C4: Mild disc desiccation and diffuse disc bulge. Mild facet and uncovertebral hypertrophy bilat erally. Increased, moderate to severe canal stenosis with new mild cord flattening. Increased, modera te right and severe left foraminal stenosis with new left C4 nerve root compression. C4-C5: Moderate disc desiccation. Moderate diffuse disc bulge. Mild facet and uncovertebral hypertro phy bilaterally. Increased, severe canal stenosis with new mild cord flattening. Increased, moderate left and severe right foraminal stenosis with new right C5 nerve root compression. C5-C6: Moderate disc height loss and desiccation. Mild diffuse disc bulge. Mild facet and uncoverteb ral hypertrophy bilaterally. Moderate to severe canal stenosis, with new mild cord flattening. Increa sed, severe bilateral foraminal stenosis with new C6 nerve root compression bilaterally. C6-C7: Moderate disc height loss and desiccation. Moderate diffuse disc bulge. Mild facet and uncove rtebral hypertrophy bilaterally. Increased, moderate to severe canal stenosis. Increased, severe bila teral foraminal stenosis with bilateral C7 nerve root compression. C7-T1: Mild disc desiccation. Mild diffuse disc bulge. Mild facet and uncovertebral hypertrophy. Mil d canal stenosis. Moderate bilateral foraminal stenosis. IMPRESSION: 1. Multilevel degenerative disc and facet disease, as well as uncovertebral hypertrophy. 2. Multilevel canal stenoses, worst at C3-C4, C4-C5, and C5-C6 where there is cord flattening. 3. Multilevel foraminal stenoses, worst at C2-C3, C3-C4, C4-C5, C5-C6, and C6-C7 where there is assoc iated intraforaminal nerve root compression. Recommend correlation with clinical symptoms to ascertai n relevance of these findings. Reviewed by: Luz Riggs MD on 03/18/2023 4:47 PM PDT Approved by: Luz Riggs MD on 03/18/2023 4:47 PM PDT Station ID: [id number]
== END 2023-03-17 15:21 | disposition home or self-care (01) ==
LOC: DI 15:20
PROVIDERS: ATTEND Orthopaedic Surgery
DX: M48.02 Spinal stenosis, cervical region (principal); M50.31 Other cervical disc degeneration, high cervical region; M47.812 Spondylosis without myelopathy or radiculopathy, cervical region

== ENCOUNTER 2024-04-09 11:04 | Outpatient (CLI) | payer MEDICARE | END 2024-04-09 11:05 | disposition critical access hospital (66) | LOC: EMS 11:04 | DX: T84.020A Dislocation of internal right hip prosthesis, initial encounter (principal) | CPT/HCPCS: A0425; A0427 ==

== ENCOUNTER 2024-04-09 11:28 | Emergency (ER) | payer MEDICARE ==
--- NOTE | 2024-04-09 11:29 | ED Physician Documentation ---
PD HPI LOWER EXT INJURY - Stated complaint Stated Complaint: RIGHT HIP PAIN - History obtained from History obtained from: Patient, EMS - Additional information Additional information: She had a right hip replaced a few years ago. Dislocated it once last year and is actually being planned for another hip replacement on that side in about a month or [address] Bush. Getting out of bed this morning she dislocated it and pain is severe but better after 100 mcg of f[address] on the way here. N.p.o. this morning. PD PAST MEDICAL HISTORY - Past Medical History Cardiovascular: Hypertension Respiratory: Sleep apnea Neuro: None Endocrine/Autoimmune: None GI: GERD : None Psych: Depression, Bipolar disorder Musculoskeletal: Osteoarthritis, Chronic back pain Derm: None - Past Surgical History Past Surgical History: Yes Ortho: Other /POWER PRESS OPERATOR: section, Hysterectomy, Oophrectomy HEENT: Tonsil/Adenoidectomy - Present Medications Home Medications: Ambulatory Orders Medication Instructions Recorded Confirmed Duloxetine HCl [Cymbalta] 60 mg PO DAILY 02/15/14 01/07/23 Omeprazole [PriLOSEC] 20 mg PO DAILY 02/15/14 01/07/23 Atorvastatin Calcium 40 mg PO DAILY 08/29/22 01/07/23 lamoTRIgine [LaMICtal] 25 mg PO BID 08/29/22 01/07/23 Ascorbic Acid [Vitamin C] 500 mg PO DAILY 01/07/23 01/07/23 Lisinopril/Hydrochlorothiazide 1 each PO DAILY 01/07/23 01/07/23 [Zestoretic 10-12.5 mg Tablet] cycloSPORINE [Restasis Multidose] 5.5 drops RIGHTEYE 1-2XD 01/08/23 01/08/23 - Allergies Allergies/Adverse Reactions: Allergies Allergy/AdvReac Type Severity Reaction Status Date / Time Penicillins Allergy Hives Verified 04/09/24 11:34 - Social History Does the pt smoke?: No Smoking Status: Never smoker Does the pt drink ETOH?: Yes Does the pt have substance abuse?: No PD ED PE NORMAL - Vitals Vital signs reviewed: Yes - General General: Alert and oriented X 3, Other (She is sweaty and uncomfortable) - Extremities Extremities: Other (Unable to range the right hip at all.) - Neuro Neuro: Alert and oriented X 3, Normal speech Eye Opening: Spontaneous Motor: Obeys Commands Verbal: Oriented GCS Score: 15 Results - Vitals Vitals: Vital Signs - 24 hr 04/09/24 04/09/24 04/09/24 11:27 12:32 12:35 Temperature 35.9 C L 36 C L Heart Rate 101 H 83 78 Respiratory 18 24 20 Rate Blood Pressure 132/99 H 153/112 H 152/94 H O2 Saturation 97 94 100 If not protocol 4 4 : Oxygen Flow, liters/minute 04/09/24 04/09/24 04/09/24 12:38 12:40 12:46 Temperature Heart Rate 71 84 67 Respiratory 19 23 19 Rate Blood Pressure 153/112 H 145/79 H 134/88 H O2 Saturation 96 94 98 If not protocol 4 4 4 : Oxygen Flow, liters/minute 04/09/24 04/09/24 04/09/24 12:50 12:53 12:55 Temperature Heart Rate 73 80 71 Respiratory 14 16 15 Rate Blood Pressure 152/84 H 143/88 H O2 Saturation 100 100 If not protocol 4 4 : Oxygen Flow, liters/minute Oxygen O2 Source Nasal cannula - Rads (name of study) Right hip x-ray demonstrates a superior prosthetic hip dislocation Relevant Findings:: Final report received, EMP independent interpretation of test Procedures - Reduction Body part reduced: Right, Hip, prosthetic Hip reduction technique: Allis - flex/pull/rotate, Fulcrum, [place] - prone flex Reduction aftercare: Alignment improved - Procedural sedation Sedation prep: Informed consent, Last meal (yesterday), PE performed, ASA 2 - mild disease Sedation Medications: propofol (100mg IVP x 5=144xh) Mallampati classification: II Patient status during sedation: Unresponsive Time in sedation (Minutes): 15 PD Medical Decision Making - ED course ED course: 68-year-old woman with a right prosthetic hip dislocation. She was sedated and a reduction attempt was done. I spent quite some time with multiple positions trying to get it in. At 1 point I thought I did have it in as the shortening seem to have reduced, but postoperative x-ray demonstrates no improvement. I discussed the case by phone with her orthopedic surgeon, Dr. Bush, on-call at [facility] as we do not have orthopedics today. He is agreeable to her coming to [facility] as an ER to ER transfer. Subsequently she was accepted as an ER to ER transfer by Dr. Alex Black at approximately 1:55 PM and cobras are completed and she is stable for transport. Departure - Departure Disposition: 02 Transfer Acute Care Hosp Clinical Impression: Hip dislocation, right Qualifiers: Encounter type: initial encounter Qualified Code(s): S73.004A - Unspecified dislocation of right hip, initial encounter Condition: Stable
[2024-04-09] MEDS: HYDROmorphone 1 MG/ML CARPUJECT IVP STA ×3 (11:51→14:51)
[2024-04-09] MEDS: KETOROLAC 15 MG/ML VIAL IVP STA (11:51)
[2024-04-09] MEDS: PROPOFOL 200 MG/20 ML VIAL IVP STA (12:58)
--- NOTE | 2024-04-09 13:03 | XRAY Report ---
PROCEDURE: Hip w/Pelvis 1V RT INDICATIONS: hip pain TECHNIQUE: AP pelvis with lateral view(s) of the hip(s). COMPARISON: Right hip radiograph on January 27, 2023. FINDINGS: Evaluation is limited secondary to patient's pain level and positioning. Bones: Evaluation is markedly limited on single view. Within these limitations, there is dislocation of the right total hip arthroplasty with disarticulation of the femoral head component with respect to the acetabular component. No suspicious bony lesions. Soft tissues: No suspicious soft tissue calcifications or masses. IMPRESSION: Evaluation is limited secondary to patient's pain level and positioning. Evaluation is markedly limited on single view. Within these limitations, there is dislocation of the right total hip arthroplasty with disarticulation of the femoral head component with respect to the a cetabular component. Reviewed by: Tabatha Diallo MD on 04/09/2024 12:02 PM [facility] Approved by: Tabatha Diallo MD on 04/09/2024 12:02 PM UM[facility] Station ID: [id number]
[2024-04-09 14:21] VITALS: O2SAT 99
--- NOTE | 2024-04-09 14:32 | XRAY Report ---
PROCEDURE: Pelvis 1-2V INDICATIONS: post reduction TECHNIQUE: 1 view(s) of the pelvis acquired. COMPARISON: Right hip radiograph on April 09, 2024 at 12:01 PM. FINDINGS: Bones: Persistent dislocation of the right total hip arthroplasty with similar alignment, accounting for differences in obliquity. No suspicious bony lesions. Soft tissues: Visualized bowel gas pattern is normal. No suspicious soft tissue calcifications. S cattered surgical clips in the pelvis. Degenerative changes of the spine. Mild left hip joint space n arrowing and juxta-articular osteophytosis. IMPRESSION: Persistent dislocation of the right total hip arthroplasty with similar alignment, accounting for dif ferences in obliquity. Reviewed by: Tabatha Diallo MD on 04/09/2024 1:31 PM [facility] Approved by: Tabatha Diallo MD on 04/09/2024 1:31 PM UM[facility] Station ID: [id number]
[2024-04-09 15:24] VITALS: BP 148/98
== END 2024-04-09 15:19 | disposition short-term general hospital (02) ==
LOC: EDUNIT# → ED 11:28
DX: T84.020A Dislocation of internal right hip prosthesis, initial encounter (principal); I10 Essential (primary) hypertension; G47.30 Sleep apnea, unspecified; K21.9 Gastro-esophageal reflux disease without esophagitis; F32.A Depression, unspecified; X58.XXXA Exposure to other specified factors, initial encounter
CPT/HCPCS: 27265; 72170; 73501; 96374; 96375; 96376; 99152; 99285; J1170

== ENCOUNTER 2024-04-09 15:16 | Outpatient (CLI) | payer MEDICARE | END 2024-04-09 23:59 | disposition short-term general hospital (02) | LOC: EMS 15:16 | PROVIDERS: ATTEND Emergency Medicine | DX: T84.020A Dislocation of internal right hip prosthesis, initial encounter (principal) | CPT/HCPCS: A0425; A0428 ==